=== PATIENT | female | born 1950 | race Caucasian/White ===

== ENCOUNTER 2018-10-17 18:14 | Emergency (ER) | payer MEDICARE, MEDICAID | END 2018-10-17 18:38 | disposition home or self-care (01) | LOC: MADERS 18:14 | DX: S16.1XXA Strain of muscle, fascia and tendon at neck level, initial encounter (principal); S80.01XA Contusion of right knee, initial encounter; E03.9 Hypothyroidism, unspecified; I49.9 Cardiac arrhythmia, unspecified; I48.91 Unspecified atrial fibrillation; F31.9 Bipolar disorder, unspecified; Z79.899 Other long term (current) drug therapy; V89.2XXA Person injured in unspecified motor-vehicle accident, traffic, initial encounter | CPT/HCPCS: 99283 ==

== ENCOUNTER 2018-12-10 09:26 | Outpatient (CLI) | payer MEDICARE, MEDICAID ==
--- NOTE | 2018-12-10 10:15 | RAD ---
Right hip 2 views HISTORY: Right hip pain. FINDINGS: Near complete loss of joint space. Mild osteophytosis and subchondral sclerosis. Mild artic ular surface irregularity. No acute fracture, dislocation, or aggressive osseous erosions. IMPRESSION: Prominent OsteoArthritic changes right hip.
--- NOTE | 2018-12-10 10:45 | RAD ---
LUMBAR SPINE 3 VIEWS: Date: 12/10/18 HISTORY: Right-sided sciatica. FINDINGS: Generalized disc osteophytosis and facet arthrosis. No significant malalignment. No acute fracture or dislocation or focal bone lesion. IMPRESSION: Fairly extensive lumbar spondylosis. Consider follow-up nonemergent MRI for further assessment given potential radiculopathy. POS: [facility]
[2018-12-10 10:59] LABS: Amphetamine Not Detected (NotDetected); Barbiturates Screen Not Detected (NotDetected); Benzodiazepine Screen Not Detected (NotDetected); Cocaine Metabolite Screen Detected (NotDetected); Medtox Control Line Valid? VALID (VALID); Methadone Not Detected (NotDetected); Methamphetamine Not Detected (NotDetected); Opiate Screen Not Detected (NotDetected); Oxycodone Screen Not Detected (NotDetected); Phencyclidine (PCP) Not Detected (NotDetected); THC/Cannabinoid Screen Not Detected (NotDetected); Tricyclic Screen Not Detected (NotDetected)
[2018-12-10 11:23] LABS: Cardiac Risk 3.9 (Less than 4.5); Cholesterol 217 mg/dl (< 200 Desired); HDL Cholesterol 56 mg/dL (>60 Neg Risk); LDL Cholesterol, Calculated 126 mg/dL; Triglycerides 176 mg/dL (Less than 150)
[2018-12-10 11:31] LABS: Thyroid Stimulating Hormone 3.5109 uIU/mL (0.35-4.94)
[2018-12-10 12:11] LABS: #Basophils 0.1 thou/uL (0.0-0.2); #Eosinphils 0.4 thou/uL (0.0-0.7); #Lymphocytes 2.3 thou/uL (1.20-3.40); #Monocytes 0.3 thou/uL (0.11-0.59); #Neutrophils 2.8 thou/uL (1.40-6.50); %Basophils 1.5 % (0.0-1.0); %Eosinophils 6.6 % (0.0-10.0); %Lymphocytes 38.9 % (21.0-51.0); %Monocytes 5.8 % (0.0-10.0); %Neutrophils 47.2 % (42.0-75.0); Hemoglobin 12.2 g/dL (12.0-16.0); Mean Corpuscular HGB CONC 31.8 g/dL (32.0-36.0); Mean Corpuscular Hemoglobin 28.3 pg (27.0-31.0); Mean Corpuscular Volume 89.1 fL (78.0-98.0); Mean Platelet Volume 8.6 fL (7.4-10.4); Platelet Count 326 thou/uL (130-400); Red Blood Cell (RBC) Count 4.32 mill/uL (4.20-5.40); White Blood Cell (WBC) Count 5.8 thou/uL (4.8-10.8)
[2018-12-10 13:19] LABS: Anion Gap 16 mmol/L (10-20); BUN (Urea Nitrogen) 23 mg/dL (9.8-20.1); Calc. Creatinine Clearance 0 mL/min (70-130); Calcium 9.4 mg/dL (7.8-10.44); Carbon Dioxide 22 mmol/L (23-31); Chloride 106 mmol/L (98-107); Estimated GFR-MDRD 73; Glucose 88 mg/dL (80-115); Potassium 4.2 mmol/L (3.5-5.1); Sodium 140 mmol/L (136-145)
[2018-12-10 17:56] LABS: Free T4 (Free Thyroxine) 0.84 ng/dL (0.70-1.48)
== END 2018-12-10 09:27 | disposition home or self-care (01) ==
LOC: MADLABBHPM 09:26
PROVIDERS: ATTEND Family Medicine
DX: I48.0 Paroxysmal atrial fibrillation (principal); M54.31 Sciatica, right side; E78.5 Hyperlipidemia, unspecified; M47.816 Spondylosis without myelopathy or radiculopathy, lumbar region; M16.11 Unilateral primary osteoarthritis, right hip; Z86.39 Personal history of other endocrine, nutritional and metabolic disease
CPT/HCPCS: 36415; 72100; 80048; 80061; 80306; 84439; 84443; 85025; 93005; 93010

== ENCOUNTER 2019-12-27 13:42 | Inpatient (IN) | payer MEDICARE, MEDICAID ==
[2019-12-27] MEDS ORDERED: HYDROcodone/Acetaminophen 7.5/325 mg Tablet PO PRN (16:07)
[2019-12-27] MEDS: Ondansetron ODT 4 MG TAB SL PRN (16:14)
[2019-12-27] MEDS ORDERED: Senokot S 8.6-50 MG TAB PO PRN (16:39)
[2019-12-27] MEDS ORDERED: hydrOXYzine 25 MG TAB PO PRN (16:43)
[2019-12-27] MEDS ORDERED: Metoprolol Tartrate 50 MG TAB PO SCH (21:00)
[2019-12-27] MEDS: Simvastatin 5 MG TAB PO SCH (21:07)
[2019-12-27] MEDS: hydrOXYzine 25 MG TAB PO SCH (21:55)
[2019-12-27] MEDS ORDERED: hydrOXYzine 25 MG TAB PO SCH (22:00)
[2019-12-27] MEDS: HYDROcodone/Acetaminophen 7.5/325 mg Tablet PO PRN (22:10)
[2019-12-28] MEDS: HYDROcodone/Acetaminophen 7.5/325 mg Tablet PO PRN ×3 (03:27→21:16)
[2019-12-28 05:40] LABS: Hemoglobin 10.5 g/dL (12.0-16.0); Mean Corpuscular HGB CONC 31.6 g/dL (32.0-36.0); Mean Corpuscular Hemoglobin 28.3 pg (27.0-31.0); Mean Corpuscular Volume 89.5 fL (78.0-98.0); Mean Platelet Volume 9.5 fL (7.4-10.4); Platelet Count 248 thou/uL (130-400); RBC Distribution Width 13.3 % (11.5-14.5); Red Blood Cell (RBC) Count 3.71 mill/uL (4.20-5.40); White Blood Cell (WBC) Count 9.7 thou/uL (4.8-10.8)
[2019-12-28 05:42] LABS: #Basophils 0.1 thou/uL (0.0-0.2); #Eosinphils 0.5 thou/uL (0.0-0.7); #Monocytes 0.7 thou/uL (0.11-0.59); #Neutrophils 6.4 thou/uL (1.40-6.50); %Eosinophils 4.8 % (0.0-10.0); %Monocytes 7.4 % (0.0-10.0); %Neutrophils 65.8 % (42.0-75.0)
[2019-12-28 05:50] LABS: Anion Gap 15 mmol/L (10-20); BUN (Urea Nitrogen) 7 mg/dL (9.8-20.1); Calc. Creatinine Clearance 99 mL/min (70-130); Calcium 9.1 mg/dL (7.8-10.44); Carbon Dioxide 23 mmol/L (23-31); Chloride 104 mmol/L (98-107); Estimated GFR-MDRD 75; Glucose 101 mg/dL (80-115); Potassium 4.1 mmol/L (3.5-5.1); Sodium 138 mmol/L (136-145)
[2019-12-28] MEDS: Bupropion 150 MG XL TAB PO SCH (08:01)
[2019-12-28] MEDS: Metoprolol Tartrate 25 MG TAB PO SCH ×2 (08:01→21:12)
[2019-12-28] MEDS: Enoxaparin Sodium 30 MG/0.3 ML SYRINGE SC SCH (08:01)
[2019-12-28] MEDS: Ibuprofen 600 MG TAB PO PRN (08:12)
[2019-12-28] MEDS ORDERED: Metoprolol Tartrate 50 MG TAB PO SCH (09:00)
[2019-12-28] MEDS: Doxycycline 100 MG CAP PO SCH ×2 (09:40→21:12)
[2019-12-28] MEDS: hydrOXYzine 25 MG TAB PO SCH ×3 (10:00→21:12)
[2019-12-28] MEDS: Simvastatin 5 MG TAB PO SCH (21:13)
[2019-12-29] MEDS: Ibuprofen 600 MG TAB PO PRN ×3 (07:48→21:00)
[2019-12-29] MEDS: Bupropion 150 MG XL TAB PO SCH (09:19)
[2019-12-29] MEDS: Doxycycline 100 MG CAP PO SCH ×2 (09:19→20:59)
[2019-12-29] MEDS: Metoprolol Tartrate 25 MG TAB PO SCH ×2 (09:20→20:59)
[2019-12-29] MEDS: hydrOXYzine 25 MG TAB PO SCH ×2 (09:20→20:59)
[2019-12-29] MEDS: Enoxaparin Sodium 30 MG/0.3 ML SYRINGE SC SCH (09:20)
[2019-12-29] MEDS: HYDROcodone/Acetaminophen 7.5/325 mg Tablet PO PRN (09:21)
[2019-12-29] MEDS: Simvastatin 5 MG TAB PO SCH (20:59)
[2019-12-30] MEDS: HYDROcodone/Acetaminophen 7.5/325 mg Tablet PO PRN ×4 (00:30→21:14)
[2019-12-30] MEDS: Bupropion 150 MG XL TAB PO SCH (08:34)
[2019-12-30] MEDS: Ibuprofen 600 MG TAB PO PRN ×2 (08:34→16:28)
[2019-12-30] MEDS: hydrOXYzine 25 MG TAB PO SCH ×2 (08:34→21:14)
[2019-12-30] MEDS: Enoxaparin Sodium 30 MG/0.3 ML SYRINGE SC SCH (08:34)
[2019-12-30] MEDS: Metoprolol Tartrate 25 MG TAB PO SCH ×2 (08:34→21:14)
[2019-12-30] MEDS: Doxycycline 100 MG CAP PO SCH ×2 (08:34→21:14)
[2019-12-30] MEDS: Simvastatin 5 MG TAB PO SCH (21:14)
[2019-12-31] MEDS: Ibuprofen 600 MG TAB PO PRN ×2 (02:56→17:19)
--- NOTE | 2019-12-31 07:32 | HP ---
HISTORY OF PRESENT ILLNESS: The patient is a 69-year-old female with history of right hip arthritis, who presents one day status post right hip JAIR. The patient was admitted to nursing home for physical rehabilitation. The patient had some nausea earlier today after arriving to the unit; however, after being given antiemetics, she states that she is feeling well at this time. Of note, the patient has a history of anxiety disorder and hypertension. PAST MEDICAL HISTORY: 1. Right hip osteoarthritis. 2. Anxiety disorder. 3. Hypertension. 4. GERD. 5. Hyperlipidemia. 6. Paroxysmal atrial fibrillation. 7. Bipolar disorder. 8. Depression. 9. Irritable bowel syndrome. CURRENT MEDICATIONS: 1. Omeprazole 40 mg p.o. daily. 2. Aspirin 325 mg p.o. b.i.d. 3. Hydroxyzine 25 mg p.o. b.i.d. p.r.n. 4. Pravastatin 10 mg p.o. daily. 5. Metoprolol 50 mg p.o. b.i.d. 6. Wellbutrin 150 mg p.o. daily. ALLERGIES: 1. ADHESIVE TAPE. 2. CODEINE. 3. EGGS. 4. PENICILLINS. 5. PROPOXYPHENE. PAST SURGICAL HISTORY: 1. Right hip JAIR. 2. Appendectomy. SOCIAL HISTORY: The patient formerly abused cocaine. The patient denies smoking or alcohol use. REVIEW OF SYSTEMS: GENERAL: The patient denies fever, chills, night sweats, or appetite changes. HEENT: The patient denies vision changes or eye pain. CARDIOVASCULAR: The patient denies chest pain or palpitation. RESPIRATORY: The patient denies cough, wheezing, or shortness of breath. ABDOMEN: The patient denies nausea, vomiting, or diarrhea. SKIN: The patient denies rashes or lesions. EXTREMITIES: The patient denies edema or . NEUROLOGIC: The patient denies numbness, tingling, or weakness. PSYCHIATRIC: The patient denies current symptoms of anxiety and depression. FAMILY HISTORY: Noncontributory. PHYSICAL EXAMINATION: VITAL SIGNS: Temperature 98.1, pulse 71, respirations 18, oxygen 97% on room air, and blood pressure 123/76. GENERAL: The patient is alert and oriented x3, in no distress. HEENT: Extraocular muscles intact. Pupils equal, round, and reactive to light and accommodation. CARDIOVASCULAR: Regular rate and rhythm. No murmurs, rubs, or gallops. LUNGS: Clear to auscultation bilaterally. No crackles, wheezes, or rhonchi. ABDOMEN: Soft and nontender to palpation. SKIN: Dented over right hip incision. MUSCULOSKELETAL: Normal bulk and tone. EXTREMITIES: No clubbing, cyanosis, or edema. No calf tenderness. ASSESSMENT: 1. Aftercare following right hip surgery. 2. Hypertension. 3. Paroxysmal atrial fibrillation. 4. Gastroesophageal reflux disease. 5. Hyperlipidemia. PLAN: We will admit the patient to nursing home for rehabilitation with physical therapy and occupational therapy, which have been consulted. We will resume the patient's home medications. Reportedly, the patient did have an episode of hypotension after surgery, so we will actually reduce her metoprolol to 25 mg b.i.d. for the time being. Continue to monitor the blood pressures routinely and adjust as needed. Regular diet has been ordered. DVT prophylaxis with Lovenox at this time. We will order BMP and CBC for baseline monitoring. The patient is in stable condition. Code status is full resuscitation. Job ID: [id number]
[2019-12-31] MEDS: Doxycycline 100 MG CAP PO SCH ×2 (08:21→20:32)
[2019-12-31] MEDS: Bupropion 150 MG XL TAB PO SCH (08:21)
[2019-12-31] MEDS: Metoprolol Tartrate 25 MG TAB PO SCH ×2 (08:21→20:32)
[2019-12-31] MEDS: HYDROcodone/Acetaminophen 7.5/325 mg Tablet PO PRN ×3 (08:21→20:32)
[2019-12-31] MEDS: Enoxaparin Sodium 30 MG/0.3 ML SYRINGE SC SCH (08:23)
[2019-12-31] MEDS: hydrOXYzine 25 MG TAB PO SCH ×3 (08:23→20:32)
[2019-12-31] MEDS ORDERED: Sodium Chloride Irrig Solution 250 ML BOT ONE (10:11)
[2019-12-31] MEDS ORDERED: Emollient 15 oz bottle 450 ML, Triamcinolone Acetonide 200 MG TOP PRN (13:50)
[2019-12-31] MEDS: Simvastatin 5 MG TAB PO SCH (20:32)
[2019-12-31] MEDS: Ondansetron ODT 4 MG TAB SL PRN (22:22)
[2020-01-01] MEDS: Ibuprofen 600 MG TAB PO PRN ×2 (04:48→12:04)
[2020-01-01] MEDS: Doxycycline 100 MG CAP PO SCH ×2 (07:57→20:30)
[2020-01-01] MEDS: HYDROcodone/Acetaminophen 7.5/325 mg Tablet PO PRN ×3 (07:57→21:29)
[2020-01-01] MEDS: Metoprolol Tartrate 25 MG TAB PO SCH ×2 (07:57→20:30)
[2020-01-01] MEDS: hydrOXYzine 25 MG TAB PO SCH ×3 (07:57→20:30)
[2020-01-01] MEDS: Enoxaparin Sodium 30 MG/0.3 ML SYRINGE SC SCH (07:57)
[2020-01-01] MEDS: Bupropion 150 MG XL TAB PO SCH (07:57)
[2020-01-01] MEDS: Simvastatin 5 MG TAB PO SCH (20:30)
--- NOTE | 2020-01-02 02:06 | PRG ---
DATE OF SERVICE: 12/31/2019 SUBJECTIVE: The patient was seen and examined at the bedside. She states that pain is well controlled at this time. She reports that she is able to fully participate with physical therapy and occupational therapy. Denies any chest pain, shortness of breath, or lower extremity edema or calf pain. OBJECTIVE: VITAL SIGNS: Temperature 98.6, pulse 64, respirations 18, oxygen 97% on room air, and blood pressure 125/70. GENERAL: The patient is alert and oriented x3, in no distress. HEENT: Extraocular muscles intact. No conjunctival erythema. CARDIOVASCULAR: Regular rate and rhythm. No murmurs, rubs, or gallops. RESPIRATORY: Lungs are clear to auscultation bilaterally. No crackles, wheezes, or rhonchi. SKIN: The patient's wound surgical incision was intact with no dehiscence, moderate amount of serosanguineous drainage on the bandage, poorly circumscribed erythema overlying surgical site, mild increase in warmth, and nontender. EXTREMITIES: No clubbing, cyanosis, or edema. ASSESSMENT: 1. Aftercare status post right total hip arthroplasty. 2. Generalized weakness. 3. Hypertension. 4. Bipolar disorder. 5. Skin erythema. PLAN: We will continue physical therapy and occupational therapy. Pain is well controlled with [place]. No concern for constipation at this time. Doxycycline was started due to concern for early cellulitis. However, skin erythema at this point does appear more consistent with allergic reaction. The patient does have a history of skin picking. We will increase hydroxyzine to three times daily and will add on Kenalog cream to be used on the affected areas, taking special care to avoid the actual incision. At this time, wound incision appears well healing with no concern for infection. We will continue to monitor and change dressings routinely. Resume the patient's home medications. The patient otherwise doing well, no concerns. DVT prophylaxis, Lovenox. Job ID: [id number]
[2020-01-02 05:52] LABS: #Basophils 0.1 thou/uL (0.0-0.2); #Eosinphils 0.9 thou/uL (0.0-0.7); #Lymphocytes 1.9 thou/uL (1.20-3.40); #Monocytes 0.6 thou/uL (0.11-0.59); #Neutrophils 3.7 thou/uL (1.40-6.50); %Eosinophils 12.7 % (0.0-10.0); %Lymphocytes 26.9 % (21.0-51.0); %Monocytes 8.2 % (0.0-10.0); %Neutrophils 51.2 % (42.0-75.0); Hemoglobin 11.4 g/dL (12.0-16.0); Mean Corpuscular HGB CONC 30.6 g/dL (32.0-36.0); Mean Corpuscular Hemoglobin 27.6 pg (27.0-31.0); Mean Corpuscular Volume 90.1 fL (78.0-98.0); Mean Platelet Volume 8.2 fL (7.4-10.4); Platelet Count 459 thou/uL (130-400); RBC Distribution Width 13.2 % (11.5-14.5); Red Blood Cell (RBC) Count 4.14 mill/uL (4.20-5.40); White Blood Cell (WBC) Count 7.2 thou/uL (4.8-10.8)
[2020-01-02] MEDS: Doxycycline 100 MG CAP PO SCH (08:00)
[2020-01-02] MEDS: hydrOXYzine 25 MG TAB PO SCH ×3 (08:00→20:16)
[2020-01-02] MEDS: Enoxaparin Sodium 30 MG/0.3 ML SYRINGE SC SCH (08:00)
[2020-01-02] MEDS: Bupropion 150 MG XL TAB PO SCH (08:00)
[2020-01-02] MEDS: Metoprolol Tartrate 25 MG TAB PO SCH ×2 (08:00→20:16)
[2020-01-02] MEDS: HYDROcodone/Acetaminophen 7.5/325 mg Tablet PO PRN ×2 (08:39→14:21)
[2020-01-02] MEDS: Simvastatin 5 MG TAB PO SCH (20:16)
[2020-01-03] MEDS: Ibuprofen 600 MG TAB PO PRN ×2 (02:15→12:56)
[2020-01-03] MEDS: Ondansetron ODT 4 MG TAB SL PRN (05:48)
[2020-01-03] MEDS: hydrOXYzine 25 MG TAB PO SCH ×3 (08:19→20:51)
[2020-01-03] MEDS: Metoprolol Tartrate 25 MG TAB PO SCH ×2 (08:19→20:51)
[2020-01-03] MEDS: HYDROcodone/Acetaminophen 7.5/325 mg Tablet PO PRN ×2 (08:19→14:59)
[2020-01-03] MEDS: Bupropion 150 MG XL TAB PO SCH (08:19)
[2020-01-03] MEDS: Enoxaparin Sodium 30 MG/0.3 ML SYRINGE SC SCH (08:19)
[2020-01-03] MEDS: Simvastatin 5 MG TAB PO SCH (20:51)
[2020-01-04] MEDS: Enoxaparin Sodium 30 MG/0.3 ML SYRINGE SC SCH (08:16)
[2020-01-04] MEDS: Bupropion 150 MG XL TAB PO SCH (08:16)
[2020-01-04] MEDS: HYDROcodone/Acetaminophen 7.5/325 mg Tablet PO PRN ×3 (08:16→21:13)
[2020-01-04] MEDS: hydrOXYzine 25 MG TAB PO SCH ×3 (08:17→21:10)
[2020-01-04] MEDS: Metoprolol Tartrate 25 MG TAB PO SCH ×2 (08:17→21:09)
[2020-01-04] MEDS: Ibuprofen 600 MG TAB PO PRN ×2 (12:39→21:13)
[2020-01-04] MEDS: Simvastatin 5 MG TAB PO SCH (21:09)
[2020-01-05] MEDS: HYDROcodone/Acetaminophen 7.5/325 mg Tablet PO PRN ×3 (03:05→20:26)
[2020-01-05] MEDS: Bupropion 150 MG XL TAB PO SCH (08:41)
[2020-01-05] MEDS: Enoxaparin Sodium 30 MG/0.3 ML SYRINGE SC SCH (08:41)
[2020-01-05] MEDS: Ibuprofen 600 MG TAB PO PRN ×2 (08:41→16:23)
[2020-01-05] MEDS: hydrOXYzine 25 MG TAB PO SCH ×3 (08:41→20:27)
[2020-01-05] MEDS: Metoprolol Tartrate 25 MG TAB PO SCH ×2 (08:41→20:27)
[2020-01-05] MEDS: Simvastatin 5 MG TAB PO SCH (20:27)
[2020-01-06] MEDS: Ibuprofen 600 MG TAB PO PRN ×3 (00:57→20:44)
[2020-01-06] MEDS: Bupropion 150 MG XL TAB PO SCH (08:16)
[2020-01-06] MEDS: Metoprolol Tartrate 25 MG TAB PO SCH ×2 (08:16→20:44)
[2020-01-06] MEDS: hydrOXYzine 25 MG TAB PO SCH ×3 (08:16→20:44)
[2020-01-06] MEDS: HYDROcodone/Acetaminophen 7.5/325 mg Tablet PO PRN ×3 (08:16→20:43)
[2020-01-06] MEDS: Enoxaparin Sodium 30 MG/0.3 ML SYRINGE SC SCH (08:17)
[2020-01-06] MEDS: Simvastatin 5 MG TAB PO SCH (20:44)
[2020-01-07] MEDS: HYDROcodone/Acetaminophen 7.5/325 mg Tablet PO PRN ×3 (05:07→19:50)
[2020-01-07] MEDS: Ibuprofen 600 MG TAB PO PRN ×2 (07:27→17:04)
[2020-01-07] MEDS: hydrOXYzine 25 MG TAB PO SCH ×3 (08:18→20:44)
[2020-01-07] MEDS: Enoxaparin Sodium 30 MG/0.3 ML SYRINGE SC SCH (08:18)
[2020-01-07] MEDS: Bupropion 150 MG XL TAB PO SCH (08:18)
[2020-01-07] MEDS: Ondansetron ODT 4 MG TAB SL PRN (08:21)
[2020-01-07] MEDS: Metoprolol Tartrate 25 MG TAB PO SCH (10:25)
[2020-01-07] MEDS: Simvastatin 5 MG TAB PO SCH (20:44)
[2020-01-08] MEDS: HYDROcodone/Acetaminophen 7.5/325 mg Tablet PO PRN ×3 (04:03→17:38)
[2020-01-08] MEDS: hydrOXYzine 25 MG TAB PO SCH ×3 (08:21→21:45)
[2020-01-08] MEDS: Enoxaparin Sodium 40 MG/0.4 ML SYRINGE SC SCH (08:21)
[2020-01-08] MEDS: Bupropion 150 MG XL TAB PO SCH (08:21)
[2020-01-08] MEDS: Simvastatin 5 MG TAB PO SCH (21:45)
[2020-01-09] MEDS: HYDROcodone/Acetaminophen 7.5/325 mg Tablet PO PRN ×3 (00:08→18:10)
[2020-01-09] MEDS: Bupropion 150 MG XL TAB PO SCH (09:21)
[2020-01-09] MEDS: Enoxaparin Sodium 40 MG/0.4 ML SYRINGE SC SCH (09:22)
[2020-01-09] MEDS: hydrOXYzine 25 MG TAB PO SCH ×3 (09:24→20:42)
[2020-01-09] MEDS: Simvastatin 5 MG TAB PO SCH (20:42)
[2020-01-09] MEDS: Ibuprofen 600 MG TAB PO PRN (20:47)
[2020-01-10] MEDS: HYDROcodone/Acetaminophen 7.5/325 mg Tablet PO PRN ×3 (00:45→18:15)
[2020-01-10] MEDS ORDERED: Iopamidol 370 76% 125 ML VIAL FS ONE (07:00)
[2020-01-10] MEDS ORDERED: Sodium Chloride 0.9% 100 ML BAG ONE (07:02)
[2020-01-10] MEDS: hydrOXYzine 25 MG TAB PO SCH ×3 (08:57→21:39)
[2020-01-10] MEDS: Bupropion 150 MG XL TAB PO SCH (08:57)
[2020-01-10] MEDS: Enoxaparin Sodium 40 MG/0.4 ML SYRINGE SC SCH (08:58)
--- NOTE | 2020-01-10 13:43 | RAD ---
PORTABLE CHEST ONE VIEW: 01/10/20 at 1:03 p.m. HISTORY: Shortness of breath. COMPARISON: 05/25/20. The heart size is normal. The lungs are well expanded without lobar consolidation, pneumothoraces, or pleural effusions. IMPRESSION: No acute process. POS: [facility]
--- NOTE | 2020-01-10 15:01 | CT ---
CT PULMONARY ANGIOGRAM WITH IV CONTRAST AND 3D POST PROCESSING: HISTORY: Shortness of breath and elevated D-dimer. FINDINGS: The pulmonary arterial vasculature is well opacified without filling defect to suggest pulmonary embo lism. The thoracic aorta is well opacified without aneurysm or dissection. No pleural or pericardia l effusions are seen. No pneumothoraces, focal areas of consolidation, lung nodules or masses are id entified. A small hiatal hernia is seen with herniation of surrounding fat as well. There are degen erative changes in the spine. IMPRESSION: No CT evidence of pulmonary embolism. POS: [facility]
[2020-01-10 15:16] LABS: #Basophils 0.1 thou/uL (0.0-0.2); #Eosinphils 0.5 thou/uL (0.0-0.7); #Lymphocytes 2.1 thou/uL (1.20-3.40); #Monocytes 0.5 thou/uL (0.11-0.59); #Neutrophils 4.5 thou/uL (1.40-6.50); %Basophils 1.6 % (0.0-1.0); %Lymphocytes 26.8 % (21.0-51.0); %Monocytes 6.8 % (0.0-10.0); %Neutrophils 58.7 % (42.0-75.0); Hemoglobin 11.2 g/dL (12.0-16.0); Mean Corpuscular HGB CONC 31.5 g/dL (32.0-36.0); Mean Corpuscular Hemoglobin 28.1 pg (27.0-31.0); Mean Corpuscular Volume 89.2 fL (78.0-98.0); Mean Platelet Volume 7.5 fL (7.4-10.4); Platelet Count 446 thou/uL (130-400); RBC Distribution Width 13.3 % (11.5-14.5); Red Blood Cell (RBC) Count 3.99 mill/uL (4.20-5.40); White Blood Cell (WBC) Count 7.7 thou/uL (4.8-10.8)
[2020-01-10 15:29] LABS: Anion Gap 18 mmol/L (10-20); BUN (Urea Nitrogen) 15 mg/dL (9.8-20.1); Calc. Creatinine Clearance 84 mL/min (70-130); Calcium 9.4 mg/dL (7.8-10.44); Carbon Dioxide 21 mmol/L (23-31); Chloride 105 mmol/L (98-107); Estimated GFR-MDRD 64; Glucose 109 mg/dL (80-115); Potassium 5.1 mmol/L (3.5-5.1); Sodium 139 mmol/L (136-145)
--- NOTE | 2020-01-10 19:25 | PRG ---
DATE OF SERVICE: 01/10/2020 SUBJECTIVE: The patient is a 69-year-old female, status post right hip replacement surgery, postop day #15. The patient reports intermittent shortness of breath with exertion, ongoing since today. Denies any chest pain. Does report some occasional palpitations. Otherwise, the patient does report left hip pain and right lower extremity pain extending from her hip and down her leg. OBJECTIVE: VITAL SIGNS: Temperature 98.5, pulse 86, respirations 16, oxygen 97% on room air, and blood pressure 136/78. GENERAL: The patient is alert and oriented x3. No apparent distress. HEENT: Extraocular muscles intact. Moist mucous membranes. CARDIOVASCULAR: Regular rate and rhythm. No murmurs, rubs, or gallops. RESPIRATORY: Lungs are clear to auscultation bilaterally. Mild increased work of breathing noted. No wheezes, rhonchi, or crackles. EXTREMITIES: Right lower extremity with mild tenderness to palpation across her right burroughs. No peripheral edema noted. Skin incision well healing, well-approximated, covered with Steri-Strips. No active drainage noted. ASSESSMENT: 1. Aftercare status post right total hip arthroplasty. 2. Generalized weakness. 3. Exertional dyspnea. 4. Hypertension. 5. Bipolar disorder. 6. Skin erythema. PLAN: We will continue physical therapy and occupational therapy with new shortness of breath. We will order a chest x-ray and a D-dimer. If D-dimer results as positive, we will follow this up with a CTA of the chest to screen for pulmonary embolism. Wound is well healing. Pain is well controlled. We will attempt to wean from narcotics next week. Regarding the patient's hypertension, the patient's blood pressures have been on the lower end of normal, so metoprolol was discontinued and her blood pressures have been stable. We will continue to monitor. The remainder of the patient's home medications are being continued. Job ID: [id number]
[2020-01-10] MEDS: Simvastatin 5 MG TAB PO SCH (21:39)
[2020-01-10] MEDS: Ibuprofen 600 MG TAB PO PRN (21:40)
[2020-01-11] MEDS: HYDROcodone/Acetaminophen 7.5/325 mg Tablet PO PRN ×3 (05:13→18:26)
[2020-01-11] MEDS: hydrOXYzine 25 MG TAB PO SCH ×3 (09:41→21:01)
[2020-01-11] MEDS: Bupropion 150 MG XL TAB PO SCH (09:41)
[2020-01-11] MEDS: Enoxaparin Sodium 40 MG/0.4 ML SYRINGE SC SCH (09:41)
[2020-01-11] MEDS: Simvastatin 5 MG TAB PO SCH (21:01)
[2020-01-12] MEDS: HYDROcodone/Acetaminophen 7.5/325 mg Tablet PO PRN ×2 (03:48→18:54)
[2020-01-12] MEDS: Ibuprofen 600 MG TAB PO PRN ×2 (05:40→22:21)
[2020-01-12] MEDS: Enoxaparin Sodium 40 MG/0.4 ML SYRINGE SC SCH (08:26)
[2020-01-12] MEDS: Bupropion 150 MG XL TAB PO SCH (08:26)
[2020-01-12] MEDS: hydrOXYzine 25 MG TAB PO SCH ×3 (08:26→20:40)
[2020-01-12] MEDS: Simvastatin 5 MG TAB PO SCH (20:39)
[2020-01-13] MEDS: HYDROcodone/Acetaminophen 7.5/325 mg Tablet PO PRN ×2 (06:05→21:21)
[2020-01-13] MEDS: hydrOXYzine 25 MG TAB PO SCH ×3 (08:32→21:20)
[2020-01-13] MEDS: Enoxaparin Sodium 40 MG/0.4 ML SYRINGE SC SCH (08:32)
[2020-01-13] MEDS: Bupropion 150 MG XL TAB PO SCH (08:32)
[2020-01-13] MEDS: Ondansetron ODT 4 MG TAB SL PRN (08:33)
[2020-01-13] MEDS: Simvastatin 5 MG TAB PO SCH (21:20)
[2020-01-13] MEDS: Ibuprofen 600 MG TAB PO PRN (23:09)
[2020-01-14] MEDS: HYDROcodone/Acetaminophen 7.5/325 mg Tablet PO PRN ×4 (03:26→21:24)
[2020-01-14] MEDS: hydrOXYzine 25 MG TAB PO SCH ×2 (08:32→21:20)
[2020-01-14] MEDS: Bupropion 150 MG XL TAB PO SCH (08:32)
[2020-01-14] MEDS: Enoxaparin Sodium 40 MG/0.4 ML SYRINGE SC SCH (08:32)
[2020-01-14] MEDS ORDERED: Metoprolol Tartrate 25 MG TAB PO SCH (21:00)
[2020-01-14] MEDS: Metoprolol Tartrate 25 MG TAB PO SCH (21:22)
[2020-01-14] MEDS: Simvastatin 5 MG TAB PO SCH (21:23)
--- NOTE | 2020-01-15 00:14 | PRG ---
DATE OF SERVICE: 01/14/2020 SUBJECTIVE: The patient is a 69-year-old female, status post right hip replacement. Pain is well controlled. Patient is working well with physical therapy. She denies any shortness of breath. Does report occasional palpitations. Her anxiety level is at baseline. Denies any chest pain or pressure. OBJECTIVE: VITALS: Temperature 98.4, pulse 73, respirations 18, oxygen 97% on room air, blood pressure 117/72. PHYSICAL EXAMINATION: GENERAL: The patient is alert and oriented x3, in no distress. HEENT: Extraocular muscles intact. Moist mucous membranes. CARDIOVASCULAR: Regular rate and rhythm. No murmurs, rubs, or gallops. RESPIRATORY: Lungs are clear to auscultation bilaterally. No use of accessory muscles of respiration. No wheezes, rhonchi, or crackles. EXTREMITIES: No peripheral edema noted. SKIN: Well-healing right hip surgical incision. No dehiscence or drainage noted. No erythema noted. ASSESSMENT: 1. Aftercare status post right hip total hip arthroplasty. 2. Generalized weakness. 3. Hypertension. 4. Bipolar disorder. PLAN: 1. Continue physical therapy and occupational therapy. Patient's shortness of breath that she had on previous evaluation appears to have resolved. We will reintroduce metoprolol at a low dose of 6.25 mg twice daily and continue to watch patient's blood pressures. We will hold for hypotension or bradycardia. At this point, we will begin discharge planning. Patient does have a followup appointment with Orthopedic Surgery at the end of the month. We will plan to discharge to home with home health and physical therapy. Patient expressed agreement with this plan and does not have any questions. 2. DVT prophylaxis. Petar. Job ID: [id number]
[2020-01-15] MEDS: Ibuprofen 600 MG TAB PO PRN ×3 (01:41→21:40)
[2020-01-15] MEDS: Metoprolol Tartrate 25 MG TAB PO SCH ×2 (08:45→20:46)
[2020-01-15] MEDS: hydrOXYzine 25 MG TAB PO SCH ×2 (08:47→20:46)
[2020-01-15] MEDS: HYDROcodone/Acetaminophen 7.5/325 mg Tablet PO PRN ×2 (08:47→20:46)
[2020-01-15] MEDS: Bupropion 150 MG XL TAB PO SCH (08:48)
[2020-01-15] MEDS: Enoxaparin Sodium 40 MG/0.4 ML SYRINGE SC SCH (08:48)
[2020-01-15] MEDS: Simvastatin 5 MG TAB PO SCH (20:46)
[2020-01-16] MEDS: HYDROcodone/Acetaminophen 7.5/325 mg Tablet PO PRN (04:20)
[2020-01-16] MEDS: hydrOXYzine 25 MG TAB PO SCH ×2 (08:39→20:31)
[2020-01-16] MEDS: Bupropion 150 MG XL TAB PO SCH (08:39)
[2020-01-16] MEDS: Enoxaparin Sodium 40 MG/0.4 ML SYRINGE SC SCH (08:39)
[2020-01-16] MEDS: Metoprolol Tartrate 25 MG TAB PO SCH ×2 (10:49→20:31)
[2020-01-16] MEDS: Ibuprofen 600 MG TAB PO PRN ×2 (11:24→19:27)
[2020-01-16] MEDS ORDERED: HYDROcodone/Acetaminophen 7.5/325 mg Tablet PO PRN (12:04)
[2020-01-16 13:21] VITALS: BMI 35.1
[2020-01-16] MEDS: HYDROcodone/Acetaminophen 5/325 mg Tablet PO PRN (18:41)
[2020-01-16] MEDS: Simvastatin 5 MG TAB PO SCH (20:30)
--- NOTE | 2020-01-16 23:16 | PRG ---
DATE OF SERVICE: 01/16/2020 SUBJECTIVE: The patient was seen and examined at the bedside today. She does report right lower extremity pain secondary to working with physical therapy today. However, pain is well controlled with pain medications. She states that her anxiety related shortness of breath is at baseline. Denies any chest pain or abdominal pain or nausea. The patient is in good spirits and expresses comfort with upcoming discharge. OBJECTIVE: VITAL SIGNS: Temperature 97.2, pulse 50, respirations 18, oxygen 97% on room air, and blood pressure 117/71. GENERAL: The patient is alert and oriented x3, in no distress. HEENT: Extraocular muscles intact. Normocephalic and atraumatic. CARDIOVASCULAR: Regular rate and rhythm. No murmurs, rubs, or gallops. LUNGS: Clear to auscultation bilaterally. ABDOMEN: Soft and nontender to palpation. SKIN: Wound well healing. No dehiscence or drainage or erythema. ASSESSMENT: 1. Aftercare status post right hip total arthroplasty. 2. Hypertension. 3. Bipolar disorder. 4. Anxiety. PLAN: We will continue physical therapy and occupational therapy. Regarding pain, we will decrease an attempt to wean from opiate therapy. We will decrease from hydrocodone 7.5 to 5 mg daily. We will also add on muscle relaxer as needed for muscle spasms. Still plan for discharge next Monday. The patient expresses desire to go home after discharge. However, she is also considering potentially going home with one of her daughters. We will arrange for home health and physical therapy at the time of discharge. Job ID: [id number]
[2020-01-17] MEDS: HYDROcodone/Acetaminophen 5/325 mg Tablet PO PRN ×3 (00:36→20:34)
[2020-01-17] MEDS: Enoxaparin Sodium 40 MG/0.4 ML SYRINGE SC SCH (09:21)
[2020-01-17] MEDS: hydrOXYzine 25 MG TAB PO SCH ×2 (09:22→20:30)
[2020-01-17] MEDS: Metoprolol Tartrate 25 MG TAB PO SCH ×2 (09:22→20:29)
[2020-01-17] MEDS: Bupropion 150 MG XL TAB PO SCH (09:22)
[2020-01-17] MEDS: Ibuprofen 600 MG TAB PO PRN ×2 (13:00→21:55)
[2020-01-17] MEDS: Cyclobenzaprine 10 MG TAB PO PRN ×2 (13:00→21:55)
[2020-01-17] MEDS: Simvastatin 5 MG TAB PO SCH (20:30)
[2020-01-18] MEDS: Cyclobenzaprine 10 MG TAB PO PRN ×2 (04:54→19:03)
[2020-01-18] MEDS: Ibuprofen 600 MG TAB PO PRN (04:54)
[2020-01-18] MEDS: Enoxaparin Sodium 40 MG/0.4 ML SYRINGE SC SCH (10:21)
[2020-01-18] MEDS: hydrOXYzine 25 MG TAB PO SCH ×2 (10:23→20:09)
[2020-01-18] MEDS: Metoprolol Tartrate 25 MG TAB PO SCH ×2 (10:31→20:09)
[2020-01-18] MEDS: Bupropion 150 MG XL TAB PO SCH (11:18)
[2020-01-18] MEDS: HYDROcodone/Acetaminophen 5/325 mg Tablet PO PRN ×2 (11:20→23:10)
[2020-01-18] MEDS: Simvastatin 5 MG TAB PO SCH (20:10)
[2020-01-19] MEDS: Ibuprofen 600 MG TAB PO PRN ×2 (01:08→18:16)
[2020-01-19] MEDS: Cyclobenzaprine 10 MG TAB PO PRN ×2 (03:53→20:40)
[2020-01-19] MEDS: Metoprolol Tartrate 25 MG TAB PO SCH ×2 (09:09→20:40)
[2020-01-19] MEDS: hydrOXYzine 25 MG TAB PO SCH ×2 (09:09→20:41)
[2020-01-19] MEDS: Enoxaparin Sodium 40 MG/0.4 ML SYRINGE SC SCH (09:09)
[2020-01-19] MEDS: Bupropion 150 MG XL TAB PO SCH (09:09)
[2020-01-19] MEDS: Simvastatin 5 MG TAB PO SCH (20:40)
[2020-01-20] MEDS: Cyclobenzaprine 10 MG TAB PO PRN (05:12)
[2020-01-20 08:00] VITALS: BP 118/79; TEMP 97.7
[2020-01-20] MEDS: Metoprolol Tartrate 25 MG TAB PO SCH (08:30)
[2020-01-20] MEDS: hydrOXYzine 25 MG TAB PO SCH (08:32)
[2020-01-20] MEDS: Enoxaparin Sodium 40 MG/0.4 ML SYRINGE SC SCH (08:32)
[2020-01-20] MEDS: Bupropion 150 MG XL TAB PO SCH (08:32)
[2020-01-20] MEDS: HYDROcodone/Acetaminophen 5/325 mg Tablet PO PRN (12:16)
--- NOTE | 2020-01-21 00:59 | DIS ---
DATE OF ADMISSION: 12/27/2019 DATE OF DISCHARGE: 01/20/2020 PRIMARY CARE PROVIDER: Dr. Lopez. PROCEDURES: 1. CTA of the chest which showed no evidence of pulmonary embolism. 2. Chest x-ray, which showed no acute cardiopulmonary abnormalities. PRIMARY DIAGNOSES: 1. Aftercare following right hip replacement surgery. 2. Generalized weakness. SECONDARY DIAGNOSES: 1. Hypertension. 2. Bradycardia. 3. Bipolar disorder. 4. Anxiety. 5. Hyperlipidemia. 6. Gastroesophageal reflux disease. DISCHARGE MEDICATIONS: 1. [place] 5/325 one tab by mouth twice daily as needed for severe pain. 2. Cyclobenzaprine 10 mg p.o. t.i.d. p.r.n. 3. Ibuprofen 600 mg p.o. t.i.d. p.r.n. 4. Pravastatin 10 mg p.o. daily. 5. Omeprazole 20 mg p.o. daily. 6. Metoprolol tartrate 25 mg one-half tablet p.o. b.i.d. 7. Wellbutrin XL 150 mg p.o. q.24 hours. 8. Hydroxyzine 25 mg p.o. b.i.d. Discontinued medications: Metoprolol 50 mg p.o. b.i.d. HISTORY OF PRESENT ILLNESS: The patient is a 69-year-old female who was admitted to nursing home status post right total hip arthroplasty. Patient did progress very well with physical therapy and occupational therapy with no major concerns. She did have an episode of acute shortness of breath, concerns for PE were raised. The workup for this ultimately deemed negative with negative CTA of the chest, negative troponins, negative EKG and negative chest x-ray. Shortness of breath was deemed to be likely anxiety related and did stabilize prior to discharge. Also of note, the patient did have some episodes of bradycardia and hypotension and for this reason, her metoprolol was decreased from 50 mg to 12.5 mg twice daily. Otherwise, patient's stay was rather unremarkable. Arrangements were made for home health with physical therapy and occupational therapy to evaluate and treat patient. DISCHARGE INSTRUCTIONS: 1. Location: Home with physical therapy and occupational therapy and home health. 2. Activity: Routine orthopedic limitations. 3. Diet: Heart healthy. 4. Followup: Patient is to establish followup within one week following discharge. TIME SPENT: Approximately 45 minutes were spent arranging and coordinating patient's hospital follow up. Job ID: [id number]
== END 2020-01-20 15:26 | disposition home health service (06) | DRG 561 ==
LOC: MADMS 14:25
PROVIDERS: ADMIT Family Medicine; ATTEND Family Medicine
DX: Z47.1 Aftercare following joint replacement surgery (principal); I10 Essential (primary) hypertension; R00.1 Bradycardia, unspecified; F31.9 Bipolar disorder, unspecified; F41.9 Anxiety disorder, unspecified; E78.5 Hyperlipidemia, unspecified; R53.1 Weakness; K21.9 Gastro-esophageal reflux disease without esophagitis; I95.9 Hypotension, unspecified; K58.9 Irritable bowel syndrome, unspecified; I48.0 Paroxysmal atrial fibrillation; Z79.01 Long term (current) use of anticoagulants; Z88.6 Allergy status to analgesic agent; Z88.1 Allergy status to other antibiotic agents; Z88.0 Allergy status to penicillin; Z88.8 Allergy status to other drugs, medicaments and biological substances; Z91.012 Allergy to eggs
CPT/HCPCS: 36415; 71045; 71275; 80048; 82565; 83880; 84484; 85025; 85379; J1650; J3490; Q0162; Q9967

== ENCOUNTER 2020-03-25 09:59 | Emergency (ER) | payer MEDICARE, MEDICAID ==
[2020-03-25] MEDS ORDERED: Iopamidol 370 76% 125 ML VIAL FS ONE (10:00)
[2020-03-25 10:51] LABS: #Basophils 0.1 thou/uL (0.0-0.2); #Eosinphils 0.4 thou/uL (0.0-0.7); #Lymphocytes 2.9 thou/uL (1.20-3.40); #Monocytes 0.5 thou/uL (0.11-0.59); #Neutrophils 5.1 thou/uL (1.40-6.50); %Basophils 1.3 % (0.0-1.0); %Eosinophils 4.2 % (0.0-10.0); %Lymphocytes 32.4 % (21.0-51.0); %Monocytes 5.8 % (0.0-10.0); %Neutrophils 56.3 % (42.0-75.0); Hemoglobin 12.9 g/dL (12.0-16.0); Mean Corpuscular HGB CONC 31.3 g/dL (32.0-36.0); Mean Corpuscular Hemoglobin 27.4 pg (27.0-31.0); Mean Corpuscular Volume 87.5 fL (78.0-98.0); Mean Platelet Volume 8.6 fL (7.4-10.4); Platelet Count 386 thou/uL (130-400); RBC Distribution Width 13.5 % (11.5-14.5); Red Blood Cell (RBC) Count 4.73 mill/uL (4.20-5.40)
[2020-03-25 11:21] LABS: ALT (SGPT) 24 U/L (8-55); AST (SGOT) 37 U/L (5-34); Alkaline Phosphatase 80 U/L (40-110); Anion Gap 15 mmol/L (10-20); BUN (Urea Nitrogen) 14 mg/dL (9.8-20.1); Bilirubin, Total 0.3 mg/dL (0.2-1.2); CK (CPK) 40 U/L (29-168); Calc. Creatinine Clearance 0 mL/min (70-130); Calcium 9.5 mg/dL (7.8-10.44); Carbon Dioxide 22 mmol/L (23-31); Chloride 106 mmol/L (98-107); Estimated GFR-MDRD 65; Globulin 3.4 g/dL (2.4-3.5); Glucose 96 mg/dL (80-115); Potassium 5.2 mmol/L (3.5-5.1); Protein, Total 7.4 g/dL (6.0-8.3); Sodium 138 mmol/L (136-145)
--- NOTE | 2020-03-25 11:59 | CT ---
CT PULMONARY ANGIOGRAM WITH IV CONTRAST AND 3D POSTPROCESSING: HISTORY: Shortness of breath with exertion. COMPARISON: 01/10/2020. FINDINGS: There is good contrast opacification of the pulmonary arterial vasculature without filling defects to suggest pulmonary embolism. The thoracic aorta is well opacified without aneurysm or dissection. N o pleural or pericardial effusions are seen. No pneumothoraces, focal areas of consolidation, lung n odules, or masses are seen. There are degenerative changes in the spine. A small hiatal hernia with herniation of surrounding fat is again seen. IMPRESSION: No CT evidence of pulmonary embolism. POS: OFF
[2020-03-25] MEDS ORDERED: Aspirin 325 MG TAB ONE (12:26)
== END 2020-03-25 13:40 | disposition short-term general hospital (02) ==
LOC: MADERS 09:59
DX: R06.00 Dyspnea, unspecified (principal); E03.9 Hypothyroidism, unspecified; I48.91 Unspecified atrial fibrillation; F41.9 Anxiety disorder, unspecified; F31.9 Bipolar disorder, unspecified; Z79.82 Long term (current) use of aspirin; Z79.899 Other long term (current) drug therapy
CPT/HCPCS: 36415; 71275; 80053; 82550; 83880; 84484; 85025; 93005; 94760; Q9967

== ENCOUNTER 2021-01-13 08:46 | Outpatient (CLI) | payer MEDICARE, MEDICAID | END 2021-01-13 08:47 | disposition home or self-care (01) | LOC: MADRAD 08:46 | PROVIDERS: ATTEND Family Medicine | DX: M25.561 Pain in right knee (principal); M17.11 Unilateral primary osteoarthritis, right knee ==

== ENCOUNTER 2023-01-17 12:00 | Outpatient (CLI) | payer OTHER, MEDICAID ==
[2023-01-17 12:45] LABS: #Basophils 0.1 thou/uL (0.0-0.2); #Eosinphils 0.3 thou/uL (0.0-0.7); #Lymphocytes 2.1 thou/uL (1.20-3.40); #Monocytes 0.4 thou/uL (0.11-0.59); #Neutrophils 4.2 thou/uL (1.40-6.50); %Basophils 1.1 % (0.0-1.0); %Eosinophils 4.7 % (0.0-10.0); %Lymphocytes 29.6 % (21.0-51.0); %Monocytes 5.9 % (0.0-10.0); %Neutrophils 58.7 % (42.0-75.0); Hemoglobin 13.3 g/dL (12.0-16.0); Mean Corpuscular HGB CONC 32.2 g/dL (32.0-36.0); Mean Corpuscular Hemoglobin 28.8 pg (27.0-31.0); Mean Corpuscular Volume 89.4 fl (78.0-98.0); Mean Platelet Volume 8.3 fL (7.4-10.4); Platelet Count 587 10x3/uL (130-400); RBC Distribution Width 12.8 % (11.5-14.5); Red Blood Cell (RBC) Count 4.61 mill/uL (4.20-5.40); White Blood Cell (WBC) Count 7.2 10x3/uL (4.8-10.8)
[2023-01-17 12:56] LABS: Anion Gap 15 mmol/L (10-20); BUN (Urea Nitrogen) 8 mg/dL (9.8-20.1); Calc. Creatinine Clearance 0 mL/min (70-130); Calcium 10.5 mg/dL (7.8-10.44); Carbon Dioxide 23 mmol/L (23-31); Cardiac Risk 3.2 (Less than 4.5); Chloride 105 mmol/L (98-107); Cholesterol 145 mg/dl (< 200 Desired); Estimated GFR 80; Glucose 102 mg/dL (83-110); HDL Cholesterol 46 mg/dL (>60 Neg Risk); LDL Cholesterol, Calculated 73 mg/dL; Potassium 4.3 mmol/L (3.5-5.1); Sodium 139 mmol/L (136-145); Triglycerides 130 mg/dL (Less than 150)
== END 2023-01-17 12:01 | disposition home or self-care (01) ==
LOC: MADRAD 12:00
PROVIDERS: ATTEND Internal Medicine
DX: I48.0 Paroxysmal atrial fibrillation (principal); J01.90 Acute sinusitis, unspecified; I25.10 Atherosclerotic heart disease of native coronary artery without angina pectoris
CPT/HCPCS: 36415; 70220; 80048; 80061; 85025

== ENCOUNTER 2023-05-29 12:00 | Outpatient (CLI) | payer MEDICARE, MEDICAID ==
[2023-05-29 12:17] LABS: #Basophils 0.1 thou/uL (0.0-0.2); #Eosinphils 0.3 thou/uL (0.0-0.7); #Lymphocytes 2.2 thou/uL (1.20-3.40); #Monocytes 0.4 thou/uL (0.11-0.59); #Neutrophils 4.7 thou/uL (1.40-6.50); %Basophils 1.3 % (0.0-1.0); %Eosinophils 3.8 % (0.0-10.0); %Lymphocytes 28.4 % (21.0-51.0); %Neutrophils 61.6 % (42.0-75.0); Hematocrit 45.7 % (36.0-47.0); Hemoglobin 14.4 g/dL (12.0-16.0); Mean Corpuscular HGB CONC 31.5 g/dL (32.0-36.0); Mean Corpuscular Hemoglobin 28.5 pg (27.0-31.0); Mean Corpuscular Volume 90.5 fl (78.0-98.0); Mean Platelet Volume 9.8 fL (7.4-10.4); Platelet Count 398 10x3/uL (130-400); RBC Distribution Width 13.6 % (11.5-14.5); Red Blood Cell (RBC) Count 5.05 mill/uL (4.20-5.40); White Blood Cell (WBC) Count 7.7 10x3/uL (4.8-10.8)
[2023-05-29 12:38] LABS: ALT (SGPT) 17 U/L (8-55); AST (SGOT) 16 U/L (5-34); Albumin 4.5 g/dL (3.4-4.8); Alkaline Phosphatase 74 U/L (40-110); Anion Gap 18 mmol/L (10-20); BUN (Urea Nitrogen) 13 mg/dL (9.8-20.1); Bilirubin, Total 0.4 mg/dL (0.2-1.2); Calc. Creatinine Clearance 0 mL/min (70-130); Calcium 10.2 mg/dL (7.8-10.44); Carbon Dioxide 21 mmol/L (23-31); Chloride 102 mmol/L (98-107); Estimated GFR 65; Globulin 2.8 g/dL (2.4-3.5); Glucose 104 mg/dL (83-110); Protein, Total 7.3 g/dL (5.8-8.1); Sodium 137 mmol/L (136-145)
== END 2023-05-29 12:01 | disposition home or self-care (01) ==
LOC: MADLAB 12:00
PROVIDERS: ATTEND Internal Medicine
DX: R06.09 Other forms of dyspnea (principal); R53.83 Other fatigue
CPT/HCPCS: 36415; 71046; 80053; 84443; 85025

== ENCOUNTER 2024-01-29 14:33 | Outpatient (CLI) | payer OTHER | END 2024-01-29 14:34 | disposition home or self-care (01) | LOC: MADRAD 14:33 | PROVIDERS: ATTEND Family Medicine | DX: M25.552 Pain in left hip (principal); M16.12 Unilateral primary osteoarthritis, left hip | CPT/HCPCS: 72170 ==

== ENCOUNTER 2025-05-05 12:28 | Outpatient (CLI) | payer OTHER, MEDICAID ==
[2025-05-05 13:38] LABS: ALT (SGPT) 16 U/L (Less than 34); AST (SGOT) 22 U/L (11-34); Albumin 4.2 g/dL (3.1-4.5); Alkaline Phosphatase 69 U/L (40-110); Anion Gap 17 mmol/L (10-20); BUN (Urea Nitrogen) 12 mg/dL (9.8-20.1); Bilirubin, Total 0.5 mg/dL (0.3-1.2); Calc. Creatinine Clearance 0 mL/min (70-130); Calcium 9.7 mg/dL (7.8-10.44); Carbon Dioxide 24 mmol/L (23-31); Cardiac Risk 2.9 (Less than 4.5); Chloride 105 mmol/L (98-107); Cholesterol 166 mg/dl (< 200 Desired); Globulin 2.9 g/dL (2.4-3.5); Glucose 100 mg/dL (83-110); HDL Cholesterol 58 mg/dL (>60 Neg Risk); LDL Cholesterol, Calculated 72 mg/dL; Potassium 3.9 mmol/L (3.5-5.1); Sodium 142 mmol/L (136-145); Triglycerides 181 mg/dL (Less than 150)
[2025-05-05 20:00] LABS: Thyroid Stimulating Hormone 2.775 uIU/mL (0.35-4.94)
[2025-05-05 23:45] LABS: T4 6.01 ug/dL (4.87-11.72); Vitamin B12 518.0 pg/mL (211-911)
[2025-05-05 23:52] LABS: Vitamin D, 25 Hydroxy 32.6 ng/ml (> 30.0)
== END 2025-05-05 12:29 | disposition home or self-care (01) ==
LOC: MADLAB 12:28
PROVIDERS: ATTEND Family Medicine
DX: Z11.59 Encounter for screening for other viral diseases (principal); I25.10 Atherosclerotic heart disease of native coronary artery without angina pectoris; K90.41 Non-celiac gluten sensitivity; E03.9 Hypothyroidism, unspecified; E78.2 Mixed hyperlipidemia
CPT/HCPCS: 36415; 80053; 80061; 82306; 82607; 84436; 84443; 84479; 87522